=== PATIENT | female | born 1990 | race Caucasian/White ===

== ENCOUNTER 2017-12-03 11:48 | Emergency (ER) | payer BC ==
[~2017-12-03] VITALS: Ht 170.2 cm; Wt 66.8 kg
[2017-12-03 11:53] VITALS: TEMP 36.9; Ht 170.2 cm; Wt 66.8 kg
[2017-12-03] MEDS ORDERED: IUD'IUD IU (12:17)
[2017-12-03] MEDS ORDERED: MULT-506 PO (12:17)
[2017-12-03] MEDS ORDERED: VNTHFA/IN INH (12:17)
[2017-12-03 12:26] LABS: BASO % 0.3 %; BASO ABS # 0.02 K/uL (0-0.2); EOS % 1.2 %; EOS ABS # 0.08 K/uL (0-0.5); HEMATOCRIT 41.6 % (37-47); HEMOGLOBIN 13.6 g/dL (12.0-16.0); IG# 0.01 K/uL (0.00-0.02); LYMPH % 31.2 %; LYMPH ABS # 2.07 K/uL (1.2-3.4); MEAN CELL VOLUME 91.8 fL (80-100); MEAN CORPUSCULAR HGB CONC 32.7 g/dl (32-36); MEAN PLATELET VOLUME 11.4 fL (7.4-10.4); MONO ABS # 0.53 K/uL (0.11-0.59); NEUT % 59.1 %; NEUT ABS # 3.93 K/uL (1.4-6.5); PLATELET COUNT 189 K/uL (130-400); RED CELL DISTRIBUTION WIDTH CV 13.8 % (11.5-14.5); RED CELL DISTRIBUTION WIDTH SD 46.6 fL (36.4-46.3); WHITE BLOOD COUNT 6.64 K/uL (4.8-10.8)
[2017-12-03 12:34] LABS: ALBUMIN 3.9 gm/dl (3.4-5.0); CALCIUM 9.4 mg/dl (8.5-10.1); CREATININE 0.88 mg/dl (0.60-1.20); POTASSIUM 3.9 mmol/L (3.5-5.1)
[2017-12-03 12:38] LABS: PTT PATIENT 25.4 SECONDS (21.0-31.0)
[2017-12-03 12:55] LABS: TOTAL PROTEIN 7.4 gm/dl (6.4-8.2)
--- NOTE | 2017-12-03 13:29 | DIAGNOSTIC IMAGING REPORT ---
R VENOUS DOPP LOWER EXT UNILAT CLINICAL HISTORY: 27 years-old Female presenting with right leg pain, smoker, recent travel. TECHNIQUE: Real-time grayscale and color and spectral Doppler ultrasound imaging of the veins of the right lower extremity was performed. Compression and augmentation were also utilized. COMPARISON: None. FINDINGS: Right: Common femoral vein: Patent. Greater saphenous vein: Patent. Deep femoral vein: Patent. Femoral vein: Patent. Popliteal vein: Patent. Calf veins: Patent. Other: None. IMPRESSION: No evidence of deep venous thrombosis. Electronically signed by: Jeff Salguero M.D. 12/03/2017 1:27 PM Dictated Date/Time: 12/03/2017 1:26 PM
--- NOTE | 2017-12-03 14:09 | EMERGENCY ROOM VISIT NOTE ---
History First contact with patient: 11:58 Chief Complaint: ABDOMINAL PAIN Stated Complaint: ABD PAIN,BLOOD FROM RECTUM, PAIN UP FOOT/CALF Nursing Triage Summary: Pt states pain in right thigh, had pain in calf last night. States last night had abd pain, now resolved. Nausea. Pt states, "Earlier today when I went to the bathroom, about 10am, the toilet was filled with bright red blood." History of Present Illness The patient is a 27 year old female who presents to the Emergency Room with multiple complaints. The patient states that yesterday evening, she had some abdominal cramping which was off and on for about 2 hours. There was some nausea associated with this cramping. The symptoms have now resolved. She states that this morning, she had a bowel movement and the toilet was filled with bright red blood. She states that her bowel movement was slightly less solid than usual. She denies any recent blood in her stools or dark, tarry stools. She is not on her menstrual period. The patient additionally reports that she has had burning in her right leg which also began last night. She states that last night the pain was in her right foot and lower leg, but the pain is now up to her mid thigh. She denies any urinary symptoms or abnormal vaginal discharge. Her last menstrual period was approximately 3 weeks ago. She denies any fever/chills, chest pain or shortness of breath. Review of Systems A complete 10 point review of systems was reviewed with the patient with pertinent positives and negatives as per history of present illness. All else were negative. Past Medical/Surgical History Medical Problems: (1) Mitral valve prolapse Surgical Problems: (1) History of tonsillectomy Social History Smoking Status: Current Every Day Smoker Alcohol Use: occasionally Housing Status: lives with family Current/Historical Medications Scheduled Iud's (Paragard Intrauterine Vice President Of Manufacturing), 1 DOSE IU DIRECTED Multivitamin (Multivitamin), 1 TAB PO DAILY Scheduled PRN Albuterol Hfa (Ventolin Hfa), 2-4 PUFFS INH Q6H PRN for SOB/Wheezing Physical Exam Vital Signs Date Time Temp Pulse Resp B/P (MAP) Pulse Ox O2 Delivery O2 Flow Rate FiO2 12/03/17 14:32 91 20 107/77 99 12/03/17 11:53 36.9 96 18 118/84 98 Room Air Physical Exam VITALS: Vitals are noted on the nurse's note and reviewed by myself. Vital signs stable. GENERAL: This is a 27-year-old female, in no acute distress, nondiaphoretic, well-developed well-nourished. SKIN: The skin was without rashes, erythema, edema, or bruising. EARS: External auditory canals clear, tympanic membranes pearly hutchins without erythema or effusion bilaterally. EYES: Pupils equal round and reactive to light and accommodation. MOUTH: Mucous membranes moist. Tonsils are not enlarged. Pharynx without erythema or exudate. NECK: Supple without nuchal rigidity. No lymphadenopathy. HEART: Regular rate and rhythm without murmurs gallops or rubs. LUNGS: Clear to auscultation bilaterally without wheezes, rales or rhonchi. ABDOMEN: Positive bowel sounds x 4. Soft, nontender to palpation. No masses or organomegaly. RECTAL: No palpable hemorrhoids or visible fissures. Light brown stool streaked with sri bright red blood. EXTREMITIES: There is tenderness to palpation of the right lateral thigh, calf and foot. NEURO: Patient was alert and oriented to person place and time. Medical Decision & Procedures ER Provider Diagnostic Interpretation: R VENOUS DOPP LOWER EXT UNILAT CLINICAL HISTORY: 27 years-old Female presenting with right leg pain, smoker, recent travel. TECHNIQUE: Real-time grayscale and color and spectral Doppler ultrasound imaging of the veins of the right lower extremity was performed. Compression and augmentation were also utilized. COMPARISON: None. FINDINGS: Right: Common femoral vein: Patent. Greater saphenous vein: Patent. Deep femoral vein: Patent. Femoral vein: Patent. Popliteal vein: Patent. Calf veins: Patent. Other: None. IMPRESSION: No evidence of deep venous thrombosis. Laboratory Results 12/03/17 12:05 Red Blood Count 4.53, Mean Corpuscular Volume 91.8, Mean Corpuscular Hemoglobin 30.0, Mean Corpuscular Hemoglobin Concent 32.7, Mean Platelet Volume 11.4, Neutrophils (%) (Auto) 59.1, Lymphocytes (%) (Auto) 31.2, Monocytes (%) (Auto) 8.0, Eosinophils (%) (Auto) 1.2, Basophils (%) (Auto) 0.3, Neutrophils # (Auto) 3.93, Lymphocytes # (Auto) 2.07, Monocytes # (Auto) 0.53, Eosinophils # (Auto) 0.08, Basophils # (Auto) 0.02 12/03/17 12:05 Test 12/03/17 12:05 12/03/17 12:25 White Blood Count 6.64 K/uL (4.8-10.8) Red Blood Count 4.53 M/uL (4.2-5.4) Hemoglobin 13.6 g/dL (12.0-16.0) Hematocrit 41.6 % (37-47) Mean Corpuscular Volume 91.8 fL (80-100) Mean Corpuscular Hemoglobin 30.0 pg (25-34) Mean Corpuscular Hemoglobin Concent 32.7 g/dl (32-36) Platelet Count 189 K/uL (130-400) Mean Platelet Volume 11.4 fL (7.4-10.4) Neutrophils (%) (Auto) 59.1 % Lymphocytes (%) (Auto) 31.2 % Monocytes (%) (Auto) 8.0 % Eosinophils (%) (Auto) 1.2 % Basophils (%) (Auto) 0.3 % Neutrophils # (Auto) 3.93 K/uL (1.4-6.5) Lymphocytes # (Auto) 2.07 K/uL (1.2-3.4) Monocytes # (Auto) 0.53 K/uL (0.11-0.59) Eosinophils # (Auto) 0.08 K/uL (0-0.5) Basophils # (Auto) 0.02 K/uL (0-0.2) RDW Standard Deviation 46.6 fL (36.4-46.3) RDW Coefficient of Variation 13.8 % (11.5-14.5) Immature Granulocyte % (Auto) 0.2 % Immature Granulocyte # (Auto) 0.01 K/uL (0.00-0.02) Prothrombin Time 10.7 SECONDS (9.0-12.0) Prothromb Time International Ratio 1.0 (0.9-1.1) Activated Partial Thromboplast Time 25.4 SECONDS (21.0-31.0) Partial Thromboplastin Ratio 1.0 Anion Gap 5.0 mmol/L (3-11) Est Creatinine Clear Calc Drug Dose 95.1 ml/min Estimated GFR () 105.8 Estimated GFR (Non- 91.3 BUN/Creatinine Ratio 12.6 (10-20) Calcium Level 9.4 mg/dl (8.5-10.1) Total Bilirubin 0.6 mg/dl (0.2-1) Aspartate Amino Transf (AST/SGOT) 14 U/L (15-37) Alanine Aminotransferase (ALT/SGPT) 34 U/L (12-78) Alkaline Phosphatase 65 U/L (45-117) Total Protein 7.4 gm/dl (6.4-8.2) Albumin 3.9 gm/dl (3.4-5.0) Globulin 3.5 gm/dl (2.5-4.0) Albumin/Globulin Ratio 1.1 (0.9-2) Lipase 123 U/L (73-393) Urine Color YELLOW Urine Appearance CLEAR (CLEAR) Urine pH 6.0 (4.5-7.5) Urine Specific [place] 1.024 (1.000-1.030) Urine Protein NEG (NEG) Urine Glucose (UA) NEG (NEG) Urine Ketones NEG (NEG) Urine Occult Blood NEG (NEG) Urine Nitrite NEG (NEG) Urine Bilirubin NEG (NEG) Urine Urobilinogen NEG (NEG) Urine Leukocyte Esterase NEG (NEG) Urine Test NEG (NEG) Medical Decision Differential diagnosis includes lower GI bleed, upper GI bleed, external hemorrhoids, internal hemorrhoids, gastritis, colitis, electrolyte abnormality, anemia, DVT, among others. The patient is a 27-year-old female who presents today complaining of rectal bleeding, resolved abdominal pain and right leg pain. Labs revealed no leukocytosis, anemia or concerning electrolyte abnormalities. Ultrasound of the right leg was unremarkable. Patient has no abdominal tenderness on exam. She does have a small amount of bright red blood from the rectum. Fortunately her hemoglobin and hematocrit are within normal limits. She was advised that she will need follow-up with both her primary care provider and gastroenterology for further evaluation. She was instructed to return here for worsening or new/concerning symptoms. Based on the patient's presentation and work up, I feel the patient is stable for outpatient treatment. The patient was educated to return to the emergency department for any worsening of their current condition or new/concerning symptoms. She will follow up with her PCP/gastroenterology. Medication Reconcilliation Current Medication List: was personally reviewed by me Blood Pressure Screening Patient's blood pressure: Normal blood pressure Impression Primary Impression: Rectal bleeding Additional Impression: Right leg pain Departure Information Dispostion Home / Self-Care Condition GOOD Referrals No Doctor, Assigned (PCP) Mary Jo Maloney M.D. Patient Instructions My [facility] Additional Instructions Your laboratory studies and imaging today were normal. You will need to follow-up with a manager pricing regarding the blood in your stool. You were provided with the information for a local manager pricing. Call this number to schedule a follow-up appointment. For pain control, you can use the following [id number] medicines (if >12 yo): - Regular strength (325mg/tab) Tylenol (acetaminophen) 2 tabs every 4-6 hours as needed. Do not exceed 12 tablets in a 24 hour period. Avoid taking more than 4 grams (4000 mg) of Tylenol per day. This includes any other sources of acetaminophen you may take on a regular basis. As with any visit to the emergency department, you should follow-up closely with your primary care provider. Return to the emergency department with worsening bleeding, abdominal pain, vomiting, fever or other new/concerning symptoms. Problem Qualifiers
[2017-12-03 14:32] VITALS: BP 107/77; PULSE 91; O2SAT 99
== END 2017-12-03 14:34 | disposition home or self-care (01) ==
LOC: C.EDB 11:51 → C.EDC 14:34
DX: K62.5 Hemorrhage of anus and rectum (principal); M79.604 Pain in right leg; I34.1 Nonrheumatic mitral (valve) prolapse; F17.210 Nicotine dependence, cigarettes, uncomplicated

== ENCOUNTER 2018-05-08 15:10 | Emergency (ER) | payer OTHER, BC ==
[~2018-05-08] VITALS: Ht 170.2 cm; Wt 68.0 kg
[~2018-05-08 15:10] MED LIST: IUD'IUD IU; MULT-506 PO; VNTHFA/IN INH
[2018-05-08 15:14] VITALS: TEMP 36.7; Ht 170.2 cm; Wt 68.0 kg
[2018-05-08 16:56] VITALS: O2SAT 97
[2018-05-08 17:06] LABS: BASO % 0.4 %; BASO ABS # 0.02 K/uL (0-0.2); EOS % 1.1 %; EOS ABS # 0.06 K/uL (0-0.5); HEMATOCRIT 39.8 % (37-47); HEMOGLOBIN 13.2 g/dL (12.0-16.0); LYMPH % 44.8 %; LYMPH ABS # 2.48 K/uL (1.2-3.4); MEAN CELL VOLUME 92.3 fL (80-100); MEAN CORPUSCULAR HEMOGLOBIN 30.6 pg (25-34); MEAN CORPUSCULAR HGB CONC 33.2 g/dl (32-36); MEAN PLATELET VOLUME 11.1 fL (7.4-10.4); MONO % 8.1 %; MONO ABS # 0.45 K/uL (0.11-0.59); NEUT % 45.6 %; NEUT ABS # 2.53 K/uL (1.4-6.5); PLATELET COUNT 200 K/uL (130-400); RED CELL DISTRIBUTION WIDTH CV 14.1 % (11.5-14.5); RED CELL DISTRIBUTION WIDTH SD 48.2 fL (36.4-46.3); WHITE BLOOD COUNT 5.54 K/uL (4.8-10.8)
[2018-05-08] MEDS ORDERED: BUPRTAB51 PO (17:22)
[2018-05-08] MEDS ORDERED: BUPRTAB PO (17:23)
--- NOTE | 2018-05-08 17:30 | DIAGNOSTIC IMAGING REPORT ---
CHEST 2 VIEWS ROUTINE CLINICAL HISTORY: Chest pain. COMPARISON STUDY: No previous studies for comparison. FINDINGS: Lung volumes are normal. No pneumothorax or pleural effusion is noted. There is no consolidation or evidence for pulmonary edema. Cardiac size is normal. Mediastinal contours are normal. IMPRESSION: No acute cardiopulmonary findings. Electronically signed by: Tashi Francois M.D. 05/08/2018 5:28 PM Dictated Date/Time: 05/08/2018 5:28 PM
[2018-05-08 17:31] LABS: ALKALINE PHOSPHATASE 59 U/L (45-117); ALT/SGPT 26 U/L (12-78); AST/SGOT 17 U/L (15-37); BLOOD UREA NITROGEN 8 mg/dl (7-18); CALCIUM 8.8 mg/dl (8.5-10.1); CARBON DIOXIDE 27 mmol/L (21-32); CREATININE 1.02 mg/dl (0.60-1.20); GLUCOSE 78 mg/dl (70-99); LIPASE 107 U/L (73-393); PHOSPHORUS 3.3 mg/dl (2.5-4.9); POTASSIUM 4.1 mmol/L (3.5-5.1); SODIUM 137 mmol/L (136-145); TOTAL PROTEIN 7.5 gm/dl (6.4-8.2)
[2018-05-08 19:11] VITALS: BP 110/69; PULSE 84; O2SAT 100
--- NOTE | 2018-05-09 00:24 | EMERGENCY ROOM VISIT NOTE ---
History First contact with patient: 16:20 Chief Complaint: PAIN (GENERALIZED) Stated Complaint: SHARP REOCCURRING PAIN L BREAST,ARM&LEG,HEADACHE History of Present Illness The patient is a 28 year old female who presents to the Emergency Room with complaints of multiple symptoms, including intermittent sharp pain in her left chest, left upper and left lower extremity, right upper posterior arm and mild headache. The patient reports a prior history of mitral valve prolapse and congenital coarctation of the aorta. She follows with Dr. Singletary, oil operator at [facility]. She moved to the area earlier in the year, and follows with Dr. Terrance Ulrich. She denies any significant shortness of breath, backache, cough, neck pain, fever or chills. She denies any focal joint pain or swelling. The patient does report a prior history of asthma. She has a prior history of tobacco use. She currently uses an IUD for contraception. She denies any prior history of blood clots. She rates her discomfort an 8 out of 10. Review of Systems HEENT: Denies dizziness, visual problems, hearing loss, tinnitus. Denies difficulty swallowing or oral lesions. PULMONARY: Denies cough, shortness of breath, sputum production or hemoptysis. CARDIOVASCULAR: Denies palpitations, dyspnea on exertion, orthopnea or peripheral edema. GASTROINTESTINAL: Denies diarrhea, constipation, nausea, vomiting, or abdominal pain. GENITOURINARY: Denies dysuria, frequency, urgency or nocturia. NEUROLOGIC: Denies history of epilepsy, CVA, TIA or chronic headaches. MUSCULOSKELETAL: Denies history of joint tenderness/swelling. SKIN: Denies rashes or lesions. PSYCHIATRIC: Denies history of depression or mental illness. ENDOCRINE: Denies history of diabetes or thyroid disorders. Past Medical/Surgical History Medical Problems: (1) Coarctation of aorta, congenital (2) Mitral valve prolapse (3) Nicotine Dependence, Cigarettes, Uncomplicated Surgical Problems: (1) History of tonsillectomy Family History FH: cancer FH: diabetes mellitus FH: heart disease FH: hypertension FH: lung disease Social History Smoking Status: Current Some Day Smoker Alcohol Use: occasionally Marital Status: single Housing Status: lives with family Occupation Status: employed Current/Historical Medications Scheduled Bupropion Hcl (Wellbutrin Xl), 150 MG PO DAILY Iud's (Paragard Intrauterine Industrial Organization Manager), 1 DOSE IU DIRECTED Multivitamin (Multivitamin), 1 TAB PO DAILY Scheduled PRN Albuterol Hfa (Ventolin Hfa), 2-4 PUFFS INH Q6H PRN for SOB/Wheezing Physical Exam Vital Signs Date Time Temp Pulse Resp B/P (MAP) Pulse Ox O2 Delivery O2 Flow Rate FiO2 05/08/18 19:11 84 18 110/69 100 Room Air 05/08/18 17:05 77 14 114/67 99 Room Air 05/08/18 16:56 97 Room Air 05/08/18 16:51 91 05/08/18 15:14 36.7 76 18 124/86 97 Room Air Physical Exam CONSTITUTIONAL: Healthy and well nourished. Alert and oriented X 3. Patient does not appear in any acute distress on my exam. PSYCHIATRIC: Positive affect. HEENT: Normocephalic, atraumatic. Pupils equal, round and reactive. No scleral icterus, conjunctival injection/pallor. OROPHARYNX: No posterior pharyngeal erythema or tonsillar hypertrophy/exudates. NECK: Full active range of motion without discomfort. No nuchal rigidity. No JVD or carotid bruits. RESPIRATORY: Clear to auscultation bilaterally with no wheezing, crackles, rhonchi or stridor. CARDIOVASCULAR: Regular rate and rhythm with no murmurs, rubs or gallops. GASTROINTESTINAL: Bowel sounds present in all quadrants. Abdomen is soft and nontender to palpation. No obvious hepatosplenomegaly. Negative CVA tenderness. MUSCULOSKELETAL: Full range of motion of all joints without discomfort. No erythema or increased warmth to palpation over the major joints. INTEGUMENTARY: No rash or other significant dermatologic conditions noted. HEMATOLOGIC: No ecchymosis or petechiae noted. NEUROLOGIC: No focal neurologic deficits noted. Medical Decision & Procedures ER Provider Diagnostic Interpretation: My interpretation of an ECG shows a normal sinus rhythm of [address] elevation or other conduction abnormalities. My interpretation of the two-view chest x-ray does not show any consolidations, pneumothorax, widened mediastinum or cardiomegaly. Radiologist report is as follows: CHEST 2 VIEWS ROUTINE CLINICAL HISTORY: Chest pain. COMPARISON STUDY: No previous studies for comparison. FINDINGS: Lung volumes are normal. No pneumothorax or pleural effusion is noted. There is no consolidation or evidence for pulmonary edema. Cardiac size is normal. Mediastinal contours are normal. IMPRESSION: No acute cardiopulmonary findings. Laboratory Results 05/08/18 16:50 Red Blood Count 4.31, Mean Corpuscular Volume 92.3, Mean Corpuscular Hemoglobin 30.6, Mean Corpuscular Hemoglobin Concent 33.2, Mean Platelet Volume 11.1, Neutrophils (%) (Auto) 45.6, Lymphocytes (%) (Auto) 44.8, Monocytes (%) (Auto) 8.1, Eosinophils (%) (Auto) 1.1, Basophils (%) (Auto) 0.4, Neutrophils # (Auto) 2.53, Lymphocytes # (Auto) 2.48, Monocytes # (Auto) 0.45, Eosinophils # (Auto) 0.06, Basophils # (Auto) 0.02 05/08/18 16:50 Test 05/08/18 16:50 White Blood Count 5.54 K/uL (4.8-10.8) Red Blood Count 4.31 M/uL (4.2-5.4) Hemoglobin 13.2 g/dL (12.0-16.0) Hematocrit 39.8 % (37-47) Mean Corpuscular Volume 92.3 fL (80-100) Mean Corpuscular Hemoglobin 30.6 pg (25-34) Mean Corpuscular Hemoglobin Concent 33.2 g/dl (32-36) Platelet Count 200 K/uL (130-400) Mean Platelet Volume 11.1 fL (7.4-10.4) Neutrophils (%) (Auto) 45.6 % Lymphocytes (%) (Auto) 44.8 % Monocytes (%) (Auto) 8.1 % Eosinophils (%) (Auto) 1.1 % Basophils (%) (Auto) 0.4 % Neutrophils # (Auto) 2.53 K/uL (1.4-6.5) Lymphocytes # (Auto) 2.48 K/uL (1.2-3.4) Monocytes # (Auto) 0.45 K/uL (0.11-0.59) Eosinophils # (Auto) 0.06 K/uL (0-0.5) Basophils # (Auto) 0.02 K/uL (0-0.2) RDW Standard Deviation 48.2 fL (36.4-46.3) RDW Coefficient of Variation 14.1 % (11.5-14.5) Immature Granulocyte % (Auto) 0.0 % Immature Granulocyte # (Auto) 0.00 K/uL (0.00-0.02) D-Dimer < 190 ug/L FEU (0-500) Anion Gap 4.0 mmol/L (3-11) Est Creatinine Clear Calc Drug Dose 81.3 ml/min Estimated GFR () 87.9 Estimated GFR (Non- 75.9 BUN/Creatinine Ratio 8.2 (10-20) Calcium Level 8.8 mg/dl (8.5-10.1) Phosphorus Level 3.3 mg/dl (2.5-4.9) Magnesium Level 2.2 mg/dl (1.8-2.4) Total Bilirubin 0.4 mg/dl (0.2-1) Direct Bilirubin 0.1 mg/dl (0-0.2) Aspartate Amino Transf (AST/SGOT) 17 U/L (15-37) Alanine Aminotransferase (ALT/SGPT) 26 U/L (12-78) Alkaline Phosphatase 59 U/L (45-117) Total Creatine Kinase 92 U/L (26-192) Troponin I < 0.015 ng/ml (0-0.045) Total Protein 7.5 gm/dl (6.4-8.2) Albumin 4.0 gm/dl (3.4-5.0) Lipase 107 U/L (73-393) Thyroid Stimulating Hormone (TSH) 2.890 uIu/ml (0.300-4.500) The above labs were reviewed and were grossly normal. ED Course Patient history and physical exam were performed. Nurse's notes were reviewed. Vital signs were reviewed and were normal. The patient has a constellation of symptoms, including pain in various parts of her body. She describes the pain as sharp and stabbing. IV access was established, and labs were drawn. Labs were reviewed and normal, including a normal d-dimer and troponin. LFTs, lipase, CBC and partial renal profile were normal. An ECG and two-view chest x- ray were normal. The case was further discussed with Dr. Reyes, ED attending physician, who agrees with workup and outpatient management. The patient was instructed to contact her PCP for further workup of her symptoms. She was instructed to return to the emergency department for any progressively worsening symptoms. The patient was happy with plan of care, voiced understanding of all discharge instructions, and rated her discomfort a 3 out of 10 at the conclusion of my exam. She was encouraged alternate ibuprofen and Tylenol as needed for pain. Medical Decision Patient presents to the emergency department with multiple complaints, including left-sided chest pain, arm pain bilaterally and mild headache. Her neurologic exam is normal. I do not suspect an acute neurologic condition. The patient is afebrile and has no leukocytosis to suggest infectious etiology. ECG and chest x-ray were normal. D-dimer and troponin were also normal, therefore I do not suspect pulmonary embolus or myocardial infarction. Additional laboratory studies are not suggestive of pancreatitis, cholecystitis or hepatitis. The patient was unable to produce a urine sample to rule out urinary tract etiology. Medication Reconcilliation Current Medication List: was personally reviewed by me Blood Pressure Screening Patient's blood pressure: Normal blood pressure Impression Primary Impression: Left sided chest pain Additional Impression: Pain in both upper extremities Departure Information Referrals No Doctor, Assigned (PCP) Patient Instructions My [facility] Problem Qualifiers
== END 2018-05-08 19:38 | disposition home or self-care (01) ==
LOC: C.EDB 15:12 → C.EDC 19:38
DX: R07.9 Chest pain, unspecified (principal); M79.601 Pain in right arm; M79.602 Pain in left arm; F17.200 Nicotine dependence, unspecified, uncomplicated

== ENCOUNTER → 2018-05-12 | Outpatient (CLI) | payer OTHER ==
[~2018-05-12] MED LIST changes: +BUPRTAB PO
--- NOTE | 2018-05-12 15:38 | DIAGNOSTIC IMAGING REPORT ---
CERVICAL SPINE MRI HISTORY: Neck pain. OSTEOARTHRITIS W/RADICULOPATHY CERVICAL REGION TECHNIQUE: Multiplanar multisequence MRI of the cervical spine was performed without the use of contrast. COMPARISON STUDY: None. FINDINGS: Straightening of the cervical spine. Alignment is intact. No fracture or subluxation. Vertebral soft tissues and the C1-C2 interval are within normal limits. The cervical spinal cord is normal in course, caliber, and signal intensity. Disc spaces are preserved. The visualized posterior fossa is unremarkable. C2-C3: No significant central canal or neural foraminal narrowing. C3-C4: No significant central canal or neural foraminal narrowing. C4-C5: Tiny focal central annular tear. No disc herniations. No significant central canal or neural foraminal narrowing. C5-C6: No significant central canal or neural foraminal narrowing. C6-C7: No significant central canal or neural foraminal narrowing. C7-T1: No significant central canal or neural foraminal narrowing. IMPRESSION: 1. Tiny focal central annular tear at C4-C5 without significant central canal or neural foraminal narrowing. 2. No disc herniations. 3. Disc spaces are preserved. 4. Straightening of the cervical spine. 5. No significant central canal or neural foraminal narrowing. Electronically signed by: Miguel Angel Ashley M.D. 05/12/2018 3:37 PM Dictated Date/Time: 05/12/2018 3:31 PM
--- NOTE | 2018-05-12 15:46 | DIAGNOSTIC IMAGING REPORT ---
Brain MRI WITHOUT CONTRAST HISTORY: Headache. OSTEOARTHRITIS W/RADICULOPATHY CERVICAL REGION TECHNIQUE: Multiplanar multisequence MRI of the brain was performed without the use of contrast. COMPARISON STUDY: None. FINDINGS: There is no hematoma, midline shift, acute infarct. A few punctate foci of T2 hyperintensity seen within the periventricular and subcortical white matter. The ventricles and sulci are within normal limits. Sagittal images raise the possibility of a 6 mm T1 hyperintense nodule within the pituitary gland. This is best in image 11 of 21. The paranasal sinuses and mastoid air cells are clear. The orbits are unremarkable. The major vascular flow voids at the skull base is are well-maintained. IMPRESSION: 1. No acute intracranial abnormality. 2. Questionable 6 mm nodule within the pituitary gland. Dedicated pituitary MRI is recommended for further evaluation. 3. A few punctate foci of T2 hyperintensity within the white matter. These are nonspecific but can be seen the setting of migraines. A demyelinating disease, vasculitis, or Lyme disease could also have a similar appearance but are considered less likely. Electronically signed by: Miguel Angel Ashley M.D. 05/12/2018 3:44 PM Dictated Date/Time: 05/12/2018 3:31 PM
== END | disposition home or self-care (01) ==
LOC: C.MRI 13:54
PROVIDERS: ATTEND Family Medicine
DX: M47.22 Other spondylosis with radiculopathy, cervical region (principal); M54.2 Cervicalgia